=== PATIENT | male | born 1955 | race Two or more races ===

== ENCOUNTER 2019-05-22 16:43 | Inpatient (IN) | payer MEDICARE, MEDICAID ==
[~2019-05-22] VITALS: Ht 160 cm; Wt 83.0 kg
[2019-05-22] MEDS ORDERED: LATA2.5D3 EACHEYE (17:17)
[2019-05-22] MEDS ORDERED: MELO15TA24 PO (17:17)
[2019-05-22] MEDS ORDERED: SIMV20TA19 PO (17:17)
[2019-05-22] MEDS ORDERED: ASPI-496 PO (17:17)
[2019-05-22] MEDS ORDERED: LISI-167 PO (17:17)
[2019-05-22] MEDS ORDERED: OMEP-110 PO (17:17)
[2019-05-22] MEDS ORDERED: HYDR-3240 PO (17:22)
[2019-05-22] MEDS ORDERED: LEVO125T5 PO (17:22)
[2019-05-22] MEDS ORDERED: DORZ10DR27 OP (17:22)
--- NOTE | 2019-05-22 17:31 | NUR ---
TASK RN: PT CURRENTLY IN MRI
[2019-05-22 17:32] LABS: ALANINE AMINOTRANSFERASE 193 U/L (12-78); ALBUMIN 2.7 g/dL (3.4-5.0); ANION GAP 7 mmol/L (5-15); CALCIUM 8.5 mg/dL (8.5-10.1); CHLORIDE 109 mmol/L (98-107); CREATININE 0.84 mg/dL (0.7-1.3)
[2019-05-22 17:35] LABS: ALKALINE PHOSPHATASE 338 U/L (45-117); BILIRUBIN,TOTAL 4.9 mg/dL (0.2-1.0); TOTAL PROTEIN 6.7 g/dL (6.4-8.2)
[2019-05-22 17:54] LABS: BASOPHILS # (AUTO) 0.04 x10^3/uL (0-0.1); BASOPHILS % (AUTO) 1 % (0-1); EOSINOPHILS # (AUTO) 0.07 x10^3/uL (0-0.4); EOSINOPHILS % (AUTO) 1 % (1-7); LYMPHOCYTES # (AUTO) 1.88 x10^3/uL (1-3.4); LYMPHOCYTES % (AUTO) 24 % (22-44); MD NO; MEAN CORPUSCULAR HEMOGLOBIN 31.6 pg (27.5-34.5); MEAN CORPUSCULAR HGB CONC 32.7 g/dL (33.2-36.2); MEAN CORPUSCULAR VOLUME 96.7 fL (81-97); MEAN PLATELET VOLUME 8.6 fL (7.4-10.4); MONOCYTES # (AUTO) 0.76 x10^3/uL (0.2-0.8); MONOCYTES % (AUTO) 10 % (2-9); NEUTROPHILS # (AUTO) 5.17 x10^3/uL (1.8-6.8); NEUTROPHILS % (AUTO) 65 % (42-75); PLATELET COUNT 374 x10^3/uL (130-400); RED BLOOD COUNT 3.85 x10^6/uL (4.38-5.82); RED CELL DISTRIBUTION WIDTH 14.1 % (9.4-14.8)
[2019-05-22] MEDS: LACTATED RINGERS 1,000 ML IV SCH ×2 (18:13→23:10)
--- NOTE | 2019-05-22 18:20 | NUR ---
ATTEMPT TO CALL REPORT, NO ANSWER ON FLOOR.
--- NOTE | 2019-05-22 18:24 | NUR ---
MED REC DONE.
--- NOTE | 2019-05-22 18:30 | NUR ---
URINE COLLECTED AND SENT TO LAB.
--- NOTE | 2019-05-22 18:45 | NUR ---
ATTEMPT TO CALL REPORT. [id number].
--- NOTE | 2019-05-22 18:47 | NUR ---
PHONE CALL PLACED TO [employer] FIELD SERVICE TECHNICIAN FOR REPORT.
--- NOTE | 2019-05-22 18:50 | NUR ---
REPORT GIVEN TO ENGINE MECHANIC. PT IS READY FOR TRANSPORT.
[2019-05-22] MEDS ORDERED: hydrALAzine 20 MG/ML, 1ML IVPush PRN (19:00)
[2019-05-22] MEDS ORDERED: ONDANSETRON 2MG/ML, 2ML IVPush PRN (19:00)
[2019-05-22] MEDS ORDERED: BISACODYL 10 MG SUPP PR PRN (19:00)
[2019-05-22 19:16] LABS: MICROSCOPIC NOT IND
[2019-05-22 19:20] LABS: CULTURE INDICATED? NO
[2019-05-22 19:38] VITALS: BP 143/82
[2019-05-22] MEDS: LATANOPROST OPHTH 0.005%, 2.5ML EACHEYE SCH (23:16)
[2019-05-22] MEDS: DORZOLAMIDE OPHTH 2%, 10ML OP SCH (23:16)
[2019-05-23 01:08] VITALS: BP 132/70
[2019-05-23] MEDS: LACTATED RINGERS 1,000 ML IV SCH ×5 (03:00→21:13)
[2019-05-23 05:51] LABS: BASOPHILS # (AUTO) 0.03 x10^3/uL (0-0.1); BASOPHILS % (AUTO) 0 % (0-1); EOSINOPHILS # (AUTO) 0.09 x10^3/uL (0-0.4); EOSINOPHILS % (AUTO) 1 % (1-7); LYMPHOCYTES # (AUTO) 1.81 x10^3/uL (1-3.4); LYMPHOCYTES % (AUTO) 23 % (22-44); MD NO; MEAN CORPUSCULAR HEMOGLOBIN 31.7 pg (27.5-34.5); MEAN CORPUSCULAR HGB CONC 33.6 g/dL (33.2-36.2); MEAN CORPUSCULAR VOLUME 94.2 fL (81-97); MEAN PLATELET VOLUME 8.2 fL (7.4-10.4); MONOCYTES # (AUTO) 0.62 x10^3/uL (0.2-0.8); MONOCYTES % (AUTO) 8 % (2-9); NEUTROPHILS # (AUTO) 5.34 x10^3/uL (1.8-6.8); NEUTROPHILS % (AUTO) 68 % (42-75); PLATELET COUNT 376 x10^3/uL (130-400); RED BLOOD COUNT 3.89 x10^6/uL (4.38-5.82); RED CELL DISTRIBUTION WIDTH 13.9 % (9.4-14.8)
[2019-05-23 06:06] LABS: ALBUMIN 2.5 g/dL (3.4-5.0); ANION GAP 9 mmol/L (5-15); CALCIUM 8.7 mg/dL (8.5-10.1); CHLORIDE 111 mmol/L (98-107)
[2019-05-23 06:10] LABS: ALANINE AMINOTRANSFERASE 159 U/L (12-78); ALKALINE PHOSPHATASE 315 U/L (45-117); BILIRUBIN,TOTAL 3.8 mg/dL (0.2-1.0); TOTAL PROTEIN 6.2 g/dL (6.4-8.2)
[2019-05-23] MEDS: morphine SULFATE 10 MG/ML, 1ML IVPush PRN ×3 (06:13→21:23)
[2019-05-23 09:01] VITALS: BP_SYST 147
[2019-05-23] MEDS: LEVOTHYROXINE 100 MCG INJ IVPush SCH (10:37)
[2019-05-23] MEDS: DORZOLAMIDE OPHTH 2%, 10ML OP SCH ×2 (10:40→21:13)
[2019-05-23] MEDS ORDERED: FENTANYL PF 100 MCG/2ML ONE (13:01)
[2019-05-23] MEDS ORDERED: MIDAZOLAM 1 MG/ML, 2ML ONE (13:01)
[2019-05-23] MEDS ORDERED: PROPOFOL 10 MG/ML, 20ML ONE (13:03)
[2019-05-23] MEDS ORDERED: SUCCINYLCHOLINE 20 MG/ML, 10ML ONE (13:03)
[2019-05-23] MEDS ORDERED: GLYCOPYRROLATE 0.2MG/1ML, 5ML ONE (13:03)
[2019-05-23] MEDS ORDERED: LIDOCAINE PF 2%, 5ML ONE (13:03)
[2019-05-23] MEDS ORDERED: OMNIPAQUE 350 MG/ML, 50 ML BOTTLE ONE (13:59)
[2019-05-23] MEDS ORDERED: FENTANYL PF 100 MCG/2ML IV PRN (14:30)
[2019-05-23] MEDS ORDERED: HYDROmorphone 2 MG/ML, 1ML IVPush PRN (14:30)
[2019-05-23] MEDS ORDERED: OXYcodone 5 MG/5 ML ORAL.SOL UDC PO PRN (14:30)
[2019-05-23] MEDS ORDERED: ONDANSETRON ODT 8 MG PO PRN (14:30)
[2019-05-23] MEDS ORDERED: LORazepam 2 MG/ML, 1ML IVPush PRN (14:30)
[2019-05-23] MEDS ORDERED: PROMETHAZINE 25 MG SUPP PR PRN (14:30)
[2019-05-23] MEDS ORDERED: PROMETHAZINE 25 MG/ML, 1ML IV PRN (14:30)
[2019-05-23] MEDS ORDERED: ACETAMINOPHEN 325 MG TABLET PO PRN (14:30)
[2019-05-23] MEDS ORDERED: ONDANSETRON 2MG/ML, 2ML IV PRN (14:30)
[2019-05-23 15:09] VITALS: BP 128/79
[2019-05-23 18:56] VITALS: BP 127/71
[2019-05-23] MEDS: LATANOPROST OPHTH 0.005%, 2.5ML EACHEYE SCH (21:14)
[2019-05-24 00:21] VITALS: BP 112/66
[2019-05-24] MEDS: LACTATED RINGERS 1,000 ML IV SCH ×3 (02:05→16:47)
[2019-05-24 05:42] LABS: ALBUMIN 2.6 g/dL (3.4-5.0); ANION GAP 5 mmol/L (5-15); CALCIUM 8.6 mg/dL (8.5-10.1); CHLORIDE 110 mmol/L (98-107)
[2019-05-24 05:48] LABS: ALANINE AMINOTRANSFERASE 145 U/L (12-78); ALKALINE PHOSPHATASE 305 U/L (45-117); BILIRUBIN,TOTAL 2.8 mg/dL (0.2-1.0); CREATININE 0.86 mg/dL (0.7-1.3); TOTAL PROTEIN 6.2 g/dL (6.4-8.2)
[2019-05-24] MEDS: morphine SULFATE 10 MG/ML, 1ML IVPush PRN ×2 (06:44→20:41)
[2019-05-24 07:45] VITALS: BP 158/81
[2019-05-24] MEDS: DORZOLAMIDE OPHTH 2%, 10ML OP SCH ×2 (08:55→20:46)
[2019-05-24] MEDS: LEVOTHYROXINE 100 MCG INJ IVPush SCH (08:57)
[2019-05-24] MEDS ORDERED: PROPOFOL 10 MG/ML, 20ML ONE (10:05)
[2019-05-24] MEDS ORDERED: ROCURONIUM 10MG/ML,5ML ONE (10:05)
[2019-05-24] MEDS ORDERED: SUCCINYLCHOLINE 20 MG/ML, 10ML ONE (10:05)
[2019-05-24] MEDS ORDERED: CEFAZOLIN 1,000 MG ONE (10:05)
[2019-05-24] MEDS ORDERED: ONDANSETRON 2MG/ML, 2ML ONE (10:05)
[2019-05-24] MEDS ORDERED: DEXAMETHASONE 4 MG/ML, 1ML ONE (10:05)
[2019-05-24 12:50] VITALS: BP 156/92
[2019-05-24] MEDS ORDERED: BUPIVACAINE/PF-EPI 0.5% 1:200K ONE (13:10)
[2019-05-24] MEDS ORDERED: BUPIVACAINE/PF 0.5% ONE (13:18)
[2019-05-24] MEDS ORDERED: MIDAZOLAM 1 MG/ML, 2ML ONE (13:27)
[2019-05-24] MEDS ORDERED: FENTANYL PF 250 MCG/5ML ONE (13:29)
[2019-05-24] MEDS ORDERED: MEPERIDINE/PF 25MG/0.5ML IVPush PRN (15:00)
[2019-05-24] MEDS ORDERED: PROMETHAZINE 25 MG/ML, 1ML IV PRN (15:00)
[2019-05-24] MEDS ORDERED: ONDANSETRON 2MG/ML, 2ML IVPush PRN (15:00)
[2019-05-24] MEDS ORDERED: hydrALAzine 20 MG/ML, 1ML IV PRN (15:00)
[2019-05-24] MEDS ORDERED: KETOROLAC 30 MG/1 ML IV PRN (15:00)
[2019-05-24] MEDS ORDERED: LABETALOL 5MG/ML, 20ML IV PRN (15:00)
[2019-05-24] MEDS ORDERED: ALBUTEROL SULFATE 2.5 MG/3 ML NPPB PRN (15:00)
[2019-05-24] MEDS ORDERED: DIAZEPAM 5 MG/ML, 2ML IV PRN ×2 (15:00)
[2019-05-24] MEDS ORDERED: METOCLOPRAMIDE 5 MG/ML, 2ML IV PRN (15:00)
[2019-05-24] MEDS ORDERED: OXYcodone 5 MG/5 ML ORAL.SOL UDC PO PRN (15:00)
[2019-05-24] MEDS ORDERED: KETOROLAC 30 MG/1 ML ONE (15:14)
[2019-05-24] MEDS ORDERED: OXYcodone 5 MG/5 ML ORAL.SOL UDC ONE (15:15)
[2019-05-24] MEDS ORDERED: FENTANYL PF 100 MCG/2ML ONE (15:15)
[2019-05-24] MEDS ORDERED: HYDROmorphone 1 MG/ML, 1ML INJ ONE (15:15)
[2019-05-24] MEDS: FENTANYL PF 100 MCG/2ML IV PRN ×2 (15:20→15:25)
[2019-05-24] MEDS ORDERED: DIAZEPAM 5 MG/ML, 2ML ONE (15:21)
[2019-05-24] MEDS: HYDROmorphone 1 MG/ML, 1ML INJ IV PRN ×2 (15:23→15:37)
[2019-05-24 16:10] VITALS: BP 148/82
[2019-05-24 18:52] VITALS: BP 154/88
[2019-05-24] MEDS: LATANOPROST OPHTH 0.005%, 2.5ML EACHEYE SCH (20:46)
[2019-05-24] MEDS: HYDROcodone/APAP 5/325 TABLET PO PRN ×2 (21:56→22:30)
[2019-05-25 00:14] VITALS: BP 111/70
[2019-05-25] MEDS: LACTATED RINGERS 1,000 ML IV SCH ×3 (02:27→23:37)
[2019-05-25 03:52] VITALS: BP 127/77
[2019-05-25] MEDS: morphine SULFATE 10 MG/ML, 1ML IVPush PRN ×2 (03:55→04:15)
[2019-05-25 05:16] LABS: BASOPHILS # (AUTO) 0.05 x10^3/uL (0-0.1); BASOPHILS % (AUTO) 1 % (0-1); EOSINOPHILS # (AUTO) 0.11 x10^3/uL (0-0.4); EOSINOPHILS % (AUTO) 1 % (1-7); LYMPHOCYTES # (AUTO) 2.04 x10^3/uL (1-3.4); LYMPHOCYTES % (AUTO) 18 % (22-44); MD NO; MEAN CORPUSCULAR HEMOGLOBIN 31.5 pg (27.5-34.5); MEAN CORPUSCULAR HGB CONC 33.3 g/dL (33.2-36.2); MEAN CORPUSCULAR VOLUME 94.5 fL (81-97); MEAN PLATELET VOLUME 8.6 fL (7.4-10.4); MONOCYTES # (AUTO) 0.53 x10^3/uL (0.2-0.8); MONOCYTES % (AUTO) 5 % (2-9); NEUTROPHILS # (AUTO) 8.59 x10^3/uL (1.8-6.8); NEUTROPHILS % (AUTO) 76 % (42-75); PLATELET COUNT 405 x10^3/uL (130-400); RED BLOOD COUNT 3.95 x10^6/uL (4.38-5.82); RED CELL DISTRIBUTION WIDTH 14.1 % (9.4-14.8)
[2019-05-25] MEDS: HYDROcodone/APAP 5/325 TABLET PO PRN ×4 (05:17→22:31)
[2019-05-25 05:20] LABS: ALANINE AMINOTRANSFERASE 144 U/L (12-78); ALBUMIN 2.5 g/dL (3.4-5.0); ANION GAP 6 mmol/L (5-15); CALCIUM 8.6 mg/dL (8.5-10.1); CHLORIDE 105 mmol/L (98-107); CREATININE 0.87 mg/dL (0.7-1.3)
[2019-05-25 05:22] LABS: ALKALINE PHOSPHATASE 287 U/L (45-117); BILIRUBIN,TOTAL 2.2 mg/dL (0.2-1.0); TOTAL PROTEIN 6.2 g/dL (6.4-8.2)
[2019-05-25 06:23] VITALS: BP 120/74
[2019-05-25] MEDS: ASPIRIN 81 MG TABLET EC PO SCH (08:28)
[2019-05-25] MEDS: OMEPRAZOLE 20 MG CAPSULE.DR PO SCH (08:28)
[2019-05-25] MEDS: LEVOTHYROXINE 125 MCG TABLET PO SCH (08:28)
[2019-05-25] MEDS: DORZOLAMIDE OPHTH 2%, 10ML OP SCH ×2 (08:28→22:32)
[2019-05-25] MEDS: LISINOPRIL 10 MG TABLET PO SCH (08:28)
[2019-05-25] MEDS ORDERED: MAGNESIUM CITRATE 300ML ORAL SOL PO ONE (11:00)
[2019-05-25 12:42] VITALS: BP 135/84
[2019-05-25 18:46] VITALS: BP 132/79
[2019-05-25] MEDS ORDERED: SIMVASTATIN 20 MG TABLET PO SCH (21:00)
[2019-05-25] MEDS: LATANOPROST OPHTH 0.005%, 2.5ML EACHEYE SCH (22:32)
[2019-05-26] MEDS: HYDROcodone/APAP 5/325 TABLET PO PRN ×2 (04:43→09:14)
[2019-05-26 04:49] VITALS: BP 156/81
[2019-05-26 05:53] LABS: ALBUMIN 2.5 g/dL (3.4-5.0); ANION GAP 8 mmol/L (5-15); CALCIUM 8.5 mg/dL (8.5-10.1); CHLORIDE 108 mmol/L (98-107)
[2019-05-26 05:58] LABS: ALANINE AMINOTRANSFERASE 136 U/L (12-78); ALKALINE PHOSPHATASE 273 U/L (45-117); BILIRUBIN,TOTAL 1.7 mg/dL (0.2-1.0); CREATININE 0.75 mg/dL (0.7-1.3); TOTAL PROTEIN 6.6 g/dL (6.4-8.2)
[2019-05-26 07:28] VITALS: BP 128/78
[2019-05-26] MEDS: ASPIRIN 81 MG TABLET EC PO SCH (09:13)
[2019-05-26] MEDS: LISINOPRIL 10 MG TABLET PO SCH (09:13)
[2019-05-26] MEDS: LEVOTHYROXINE 125 MCG TABLET PO SCH (09:13)
[2019-05-26] MEDS: DORZOLAMIDE OPHTH 2%, 10ML OP SCH (09:13)
[2019-05-26] MEDS: OMEPRAZOLE 20 MG CAPSULE.DR PO SCH (09:13)
[2019-05-26] MEDS ORDERED: DOCU240C53 PO (09:34)
[2019-05-26] MEDS: LACTATED RINGERS 1,000 ML IV SCH (10:50)
== END 2019-05-26 12:00 | disposition home or self-care (01) | DRG 417 ==
LOC: ED 17:26 → UNDOADMIN 17:27 → EDIP 17:27 → ED 17:58 → 3N 21:49 → 4NE 05-24 16:11
PROVIDERS: ADMIT Internal Medicine; ATTEND Internal Medicine
PROC: 0FC98ZZ Extirpation of Matter from Common Bile Duct, Via Natural or Artificial Opening Endoscopic (ICD-10-PCS; 2019-05-23)
PROC: 0FT44ZZ Resection of Gallbladder, Percutaneous Endoscopic Approach (ICD-10-PCS; principal; 2019-05-24 13:00)
DX: K80.61 Calculus of gallbladder and bile duct with cholecystitis, unspecified, with obstruction (principal); K85.10 Biliary acute pancreatitis without necrosis or infection; K56.7 Ileus, unspecified; K70.10 Alcoholic hepatitis without ascites; R74.0 Nonspecific elevation of levels of transaminase and lactic acid dehydrogenase [LDH]; K21.9 Gastro-esophageal reflux disease without esophagitis; E03.9 Hypothyroidism, unspecified; E78.5 Hyperlipidemia, unspecified; H40.9 Unspecified glaucoma; F17.200 Nicotine dependence, unspecified, uncomplicated; D64.9 Anemia, unspecified; E66.01 Morbid (severe) obesity due to excess calories; E11.9 Type 2 diabetes mellitus without complications; I11.0 Hypertensive heart disease with heart failure; I50.9 Heart failure, unspecified; F10.10 Alcohol abuse, uncomplicated; I25.10 Atherosclerotic heart disease of native coronary artery without angina pectoris; K59.00 Constipation, unspecified; Z83.3 Family history of diabetes mellitus; Z82.49 Family history of ischemic heart disease and other diseases of the circulatory system; Z90.81 Acquired absence of spleen
CPT/HCPCS: 36415; 74018; 74328; 80053; 81003; 83690; 85025; 88304; 99285; G0378; J0690; J1100; J1170; J1885; J2250; J2405; J2704; J3010; Q9967; C1769; C8901; J0330; J2270; J7120